=== PATIENT | female | born 1980 | race Caucasian/White ===

== ENCOUNTER 2018-07-24 17:14 | Emergency (ER) | payer MEDICAID, OTHER ==
[2018-07-24 17:37] VITALS: BP 141/90; PULSE 73; RESP 18; TEMP 98.6
--- NOTE | 2018-07-24 17:55 | ED ---
General Adult HPI - General Chief complaint: ENT Stated complaint: sorethroat Time Seen by Provider: 07/24/18 17:36 Source: patient, RN notes reviewed Mode of arrival: ambulatory Limitations: no limitations - History of Present Illness Initial comments: 38-year-old female presents to the emergency department for chief complaint of sore throat. Patient states the sore throat started yesterday. Patient denies any difficulty with swallowing, just states she has some mild pain with this. Patient denies any difficulty breathing. Patient states she was exposed to strep throat over the weekend through multiple cousins. Patient denies cough. Patient denies fevers. Patient has no other complaints at this time including shortness of breath, chest pain, abdominal pain, nausea or vomiting, headache, or visual changes. - Related Data Previous Rx's Medication Instructions Recorded Amoxicillin 875 mg PO Q12HR 10 Days tablet 07/24/18 Allergies Allergy/AdvReac Type Severity Reaction Status Date / Time erythromycin base Allergy Unknown Verified 07/24/18 17:33 Review of Systems ROS Statement: Those systems with pertinent positive or pertinent negative responses have been documented in the HPI. ROS Other: All systems not noted in ROS Statement are negative. Past Medical History Past Medical History: No Reported History History of Any Multi-Drug Resistant Organisms: None Reported Past Surgical History: No Surgical Hx Reported Past Psychological History: No Psychological Hx Reported Smoking Status: Never smoker Past Alcohol Use History: Occasional Past Drug Use History: None Reported General Exam Limitations: no limitations General appearance: alert, in no apparent distress Head exam: Present: atraumatic, normocephalic, normal inspection Eye exam: Present: normal appearance, PERRL, EOMI. Absent: scleral icterus, conjunctival injection, periorbital swelling ENT exam: Present: normal exam, mucous membranes moist, TM's normal bilaterally, normal external ear exam. Absent: normal oropharynx (Patient has bilateral tonsillar exudates, uvula is midline. No evidence of tonsillar abscess) Neck exam: Present: normal inspection, full ROM. Absent: tenderness, meningismus, lymphadenopathy Respiratory exam: Present: normal lung sounds bilaterally. Absent: respiratory distress, wheezes, rales, rhonchi, stridor Cardiovascular Exam: Present: regular rate, normal rhythm, normal heart sounds. Absent: systolic murmur, diastolic murmur, rubs, gallop, clicks Neurological exam: Present: alert, oriented X3, CN II-XII intact Psychiatric exam: Present: normal affect, normal mood Course Vital Signs 07/24/18 17:34 Temperature 98.6 F Pulse Rate 73 Respiratory 18 Rate Blood Pressure 141/90 O2 Sat by Pulse 100 Oximetry Medical Decision Making - Medical Decision Making 38-year-old female presents for sore throat 2 days. Patient was exposed to strep over the weekend. No shortness breath or difficulty breathing. No neck stiffness or pain. On exam patient does have bilateral tonsillar exudates, uvula is midline. Rapid strep was negative however given clinical symptoms and exposure to the acquaintances with strep patient will be treated with amoxicillin and culture will be sent. She will follow up with primary care in 1-2 days. She'll return here if she has any worsening symptoms. - Lab Data Lab Results 07/24/18 Range/Units 17:38 Group A Strep Rapid Negative (Negative) Disposition Clinical Impression: Pharyngitis Disposition: HOME SELF-CARE Condition: Good Instructions (If sedation given, give patient instructions): Strep Throat (ED) Additional Instructions: Please take antibiotics as directed. Follow up with primary care in 1-2 days. Return here to the emergency department if you have any worsening symptoms. Prescriptions: Amoxicillin 875 mg PO Q12HR 10 Days tablet Is patient prescribed a controlled substance at d/c from ED?: No Referrals: Sue Meléndez MD [Primary Care Provider] - 1-2 days Time of Disposition: 17:52
== END 2018-07-24 18:05 | disposition home or self-care (01) ==
LOC: EC 17:14
DX: J02.9 Acute pharyngitis, unspecified (principal); Z88.1 Allergy status to other antibiotic agents
CPT/HCPCS: 87081; 87430; 99283

== ENCOUNTER → 2021-01-27 | Outpatient (CLI) | payer MEDICAID | END | disposition home or self-care (01) | LOC: LABWHC1 10:30 | PROVIDERS: ATTEND Emergency Medicine | DX: U07.1 COVID-19 (principal) | CPT/HCPCS: U0003; C9803; U0005 ==

== ENCOUNTER → 2021-03-16 | Outpatient (CLI) | payer MEDICAID | END | disposition home or self-care (01) | LOC: LABWHC1 15:15 | PROVIDERS: ATTEND Internal Medicine | DX: Z20.822 Contact with and (suspected) exposure to COVID-19 (principal); R05.9 Cough, unspecified; R09.81 Nasal congestion | CPT/HCPCS: U0003; C9803 ==